=== PATIENT | female | born 1965 | race Caucasian/White ===

== ENCOUNTER 2017-02-16 21:38 | Emergency (ER) | payer OTHER, BC ==
[2017-02-16] MEDS ORDERED: HYDROcodone/ACETAMINOPHEN 1 EACH TABLET PO ONE (22:25)
--- NOTE | 2017-02-16 22:26 | ERNOTE ---
Upper Extremity HPI - Narrative Date of Service: 02/16/17 - General Extremities Pain Location: wrist: right Time Seen by Provider: 02/16/17 21:43 Source: patient - Immun/Allergies/Home Medications Immunizations: IMMUNIZATION HX Immunizations Up to Date Yes History of Influenza Vaccine No Hx Pneumococcal Vaccination No Allergies/Adverse Reactions: Allergies Allergy/AdvReac Type Severity Reaction Status Date / Time fluoxetine HCl [From Prozac] Allergy Verified 08/14/15 13:14 antihistamines AdvReac Mild "feel like Uncoded 03/30/15 20:58 heart skips a beat" Home Medications: HOME MEDICATIONS Calcium Carb/Vitamin D3/Vit K1 [Calcium + D Soft Chewable Tab] 1 each PO DAILY 03/30/15 [Last Taken Unknown] Levothyroxine Sodium [Unithroid] 100 mcg PO DAILY 03/30/15 [Last Taken Unknown] Lorazepam [Ativan] 2 mg PO PRN 03/30/15 [Last Taken Unknown] Metoprolol Tartrate [Lopressor] 25 mg PO BID 03/30/15 [Last Taken Unknown] Venlafaxine HCl [Venlafaxine HCl ER] 150 mg PO DAILY 03/30/15 [Last Taken Unknown] lamoTRIgine [Lamictal] 150 mg PO DAILY 03/30/15 [Last Taken Unknown] Omeprazole [Prilosec] 40 mg PO BID 08/14/15 [Last Taken Unknown] HYDROcodone/ACETAMINOPHEN [Hulett 5-325] 1 tab PO Q4H PRN #40 tab 02/16/17 [Last Taken Unknown] - History of Present Illness Narrative: This is a 51-year-old [id number] female who presents to the emergency department complaining of right wrist pain. The patient states this morning around 9 AM she was at work and was wheeling a very heavy load on a cart. She says that the momentum of the cart was in excess of what she could stop so she put her arm out between the handle and the wall. She received compression from the handle onto her wrist as her arm was straight between the wall and the handle. This was an axial loading kind of injury. She says that they saw her and felt that she had hyperextended it. She says that she heard a crunch. She has had no numbness or tingling. She has had no color change. She says it is continued to hurt throughout the day. She actually went back to work. The patient has no other injuries or complaints Review of Systems - Review of Systems Constitutional: Present: no symptoms reported EYE: Present: no symptoms reported ENT: Present: no symptoms reported Respiratory: Present: no symptoms reported Cardiology: Present: no symptoms reported Gastrointestinal/Abdominal: Present: no symptoms reported Genitourinary: Present: no symptoms reported Musculoskeletal: Present: See HPI, joint pain Skin: Present: no symptoms reported Neurological: Present: no symptoms reported Endocrine: Present: no symptoms reported Hematologic/Lymphatic: Present: no symptoms reported All Other Systems: All systems neg except as marked - Patient's Past Medical History Patient History - Medical: Anxiety, Depression, GERD, Hypothyroidism Patient History - Cardiac/Respiratory: Hypertension Patient History - Cancer: No Hx of Cancer Patient History - Surgical Procedures: Appendectomy, Hysterectomy, T & A Patient History - Other: None - Social History Living Situations: home Abuse History: No History of abuse Psych History: Hx of Anxiety, Hx of Depression Smoking Status: Never smoker Have you smoked in the past 12 months: No Do you dip or chew tobacco: No Alcohol Use: none Drug Use: none - Immunizations Immunizations Up to Date: Yes Hx Pneumococcal Vaccination: No History of Influenza Vaccine: No Physical Exam - Physical Exam General Appearance: Present: wd/wn, alert, no apparent distress Head Exam: Present: normal inspection, no evidence of injury Eye Exam: Normal inspection: bilateral, PERRL: bilateral, EOMI: bilateral Ears, Nose, Throat: Present: normal ENT inspection, normal pharynx Neck: Present: normal inspection, nontender Respiratory: Present: no respiratory distress, normal breath sounds, no accessory muscle use, chest nontender, lungs clear Cardiovascular/Chest: Present: regular rate, rhythm, no murmur, normal peripheral pulses Gastrointestinal/Abdominal: Present: normal bowel sounds, nontender, nondistended, soft, no organomegaly Extremity Exam: Present: other - the patient has significant tenderness to the distal radius. Limited range of motion due to pain at the wrist. Normal range of motion in all fingers. Good capillary refill. No pain proximal in the forearm. Full range of motion of elbow. Neurological Exam: Present: alert, oriented, normal mood/affect, no motor/ sensory deficits ED Progress - Vital Signs Patient's Vital Signs:: I have reviewed the patient's vital signs. Vital Signs: Vital Signs 02/16/17 21:52 Temperature 36.6 C Pulse Rate 65 Respiratory 14 Rate Blood Pressure 124/78 O2 Sat by Pulse 95 Oximetry - X-Ray X-Ray #1 X-Ray: wrist Interpretation: Interp. by me - patient has an impacted fracture of the right radius. There is also ulnar styloid fracture. Undetermined age. - Progress/Reassessment Chief Complaint: Upper Extremity Injury/Problem Plan - Plan Plan: Patient is going to be treated with a splint. I will give her pain medicine. She is to be off of work until she is seen by orthopedics. She is given the number for orthopedics. His given a prescription for pain medicine as well Departure Clinical Impression: Wrist fracture - Departure Condition: Stable Instructions: Wrist Fracture Treated With Immobilization, [id number] Additional Instructions: Absolutely no work until you are seen by orthopedics for follow-up. Take the pain medicine as prescribed. Do not take pain medicine if you driving or operating machinery. Be aware that this medicine may make you sleepy. Return to the emergency department for any new or concerning symptoms. Referrals: Miko Pace DO [Primary Care Provider] - Prescriptions: HYDROcodone/ACETAMINOPHEN [Hulett 5-325] 1 tab PO Q4H PRN #40 tab PRN Reason: Pain
[2017-02-16] MEDS ORDERED: HYDROcodone/ACETAMINOPHEN 1 EACH TABLET ONE (22:44)
[2017-02-16 23:03] VITALS: BP 122/70
== END 2017-02-16 23:00 | disposition home or self-care (01) ==
LOC: ER 21:38
PROC: 2W3CX1Z Immobilization of Right Lower Arm using Splint (ICD-10-PCS; principal; 2017-02-16)
DX: S62.101A Fracture of unspecified carpal bone, right wrist, initial encounter for closed fracture (principal); X50.0XXA Overexertion from strenuous movement or load, initial encounter; Y93.89 Activity, other specified; Y92.63 Factory as the place of occurrence of the external cause; Y99.0 Civilian activity done for income or pay; F41.9 Anxiety disorder, unspecified; F32.9 Major depressive disorder, single episode, unspecified

== ENCOUNTER 2017-06-26 13:05 | Emergency (ER) | payer BC ==
[2017-06-26 13:32] LABS: Hematocrit 34.9 % (37.0-47.0); Hemoglobin 10.7 gm/dL (12.5-16.0); Mean Cell Volume 79.9 fl (78-100); Mean Corpuscular Hemoglobin 24.5 pg (27-31); Mean Corpuscular Hgb Conc 30.7 g/dl (32-36); Mean Platelet Volume 10.7 fl (6.0-9.5); Neutrophil # 4.5 K/mm3 (1.3-6.0); Neutrophil % 61.6 % (42-75.0); Platelet Count 308 K/mm3 (150-450); Red Blood Count 4.37 M/mm3 (4.2-5.4); Red Cell Distribution Width 15.4 % (11.5-14.0); White Blood Count 7.4 K/mm3 (4.0-10.5)
[2017-06-26] MEDS ORDERED: ASPIRIN 81 MG TAB.CHEW PO ONE (13:34)
[2017-06-26] MEDS ORDERED: ASPIRIN 81 MG TAB.CHEW ONE (13:34)
[2017-06-26 13:44] LABS: Prothrombin Time (Patient) 9.6 Seconds (9.0-11.0)
--- NOTE | 2017-06-26 13:46 | ERNOTE ---
Chest Pain/Cardiac HPI Chief Complaint: Chest Pain Time Seen by Provider: 06/26/17 13:22 Source: patient Exam Limitations: no limitations Immunizations: IMMUNIZATION HX Immunizations Up to Date Yes History of Influenza Vaccine No Hx Pneumococcal Vaccination No Allergies/Adverse Reactions: Allergies fluoxetine HCl [From Prozac] Allergy (Verified 06/26/17 13:13) antihistamines Adverse Reaction (Mild, Uncoded 06/26/17 13:13) "feel like heart skips a beat" Home Medications: HOME MEDICATIONS Calcium Carb/Vitamin D3/Vit K1 [Calcium + D Soft Chewable Tab] 1 each PO DAILY 03/30/15 [Last Taken Unknown] Levothyroxine Sodium [Unithroid] 100 mcg PO DAILY 03/30/15 [Last Taken Unknown] Lorazepam [Ativan] 2 mg PO PRN 03/30/15 [Last Taken Unknown] Metoprolol Tartrate [Lopressor] 25 mg PO BID 03/30/15 [Last Taken Unknown] Venlafaxine HCl [Venlafaxine HCl ER] 150 mg PO DAILY 03/30/15 [Last Taken Unknown] lamoTRIgine [Lamictal] 150 mg PO DAILY 03/30/15 [Last Taken Unknown] Omeprazole [Prilosec] 40 mg PO BID 08/14/15 [Last Taken Unknown] Venlafaxine HCl 75 mg PO DAILY 02/16/17 [Last Taken Unknown] Doxycycline Hyclate [Vibratab] 100 mg PO BID 06/26/17 [Last Taken Unknown] Narrative: Patient has had pressure in her chest on and off for about a week. About 90 minutes prior to coming here she had another episode of chest pressure radiating to her neck and left arm, she also feels short of breath. She was on her way back from her orthopedic doctor after being released back to work. She was injured at work and there is a lawsuit involved as she didn't get payed while she was off. She is afraid of going back and being pushed into quitting, so her stress level is very high. Timing: intermittent Severity/Quality: mild Location: central Chest Pain Radiation: neck, shoulders Activities at Onset: emotional stress Modifying Factors - Improves: Present: nothing Modifying Factors - Worsens: Present: nothing Nitro Today/Relief: no nitro taken today Aspirin Treatment Today: no aspirin today Associated Symptoms: Present: shortness of breath, heartburn. Absent: dizziness , cough, diaphoresis, fever/chills, palpitations, nausea, vomiting, abdominal pain Prior Chest Pain/Cardiac Workup: Denies: prior chest pain, no prior cardiac workup Prior Treatment: Denies: currently on antibiotics Review of Systems - Review of Systems Constitutional: Absent: recent illness, fever EYE: Absent: vision changes ENT: Absent: sore throat Respiratory: Present: See HPI, shortness of breath Cardiology: Present: See HPI, chest pain Gastrointestinal/Abdominal: Absent: nausea, vomiting, abdominal pain Genitourinary: Present: no symptoms reported Musculoskeletal: Absent: back pain, neck pain Neurological: Absent: headache - Patient's Past Medical History Patient History - Medical: Anxiety, Depression, GERD, Hypothyroidism Patient History - Cardiac/Respiratory: Hypertension Patient History - Cancer: No Hx of Cancer Patient History - Surgical Procedures: Appendectomy, Hysterectomy, T & A Patient History - Other: None - Social History Abuse History: No History of abuse Psych History: Hx of Anxiety, Hx of Depression Smoking Status: Never smoker Have you smoked in the past 12 months: No Alcohol Use: none Drug Use: none - Immunizations Immunizations Up to Date: Yes Hx Pneumococcal Vaccination: No History of Influenza Vaccine: No Physical Exam - Physical Exam General Appearance: Present: wd/wn, alert, no apparent distress, anxious, obese Ears, Nose, Throat: Present: normal ENT inspection, normal pharynx Respiratory: Present: no respiratory distress, normal breath sounds, no accessory muscle use, chest nontender, lungs clear Cardiovascular/Chest: Present: regular rate, rhythm, no murmur Gastrointestinal/Abdominal: Present: normal bowel sounds, nontender, nondistended, soft Extremity Exam: Present: no edema Neurological Exam: Present: alert, oriented, normal mood/affect Skin Exam: Present: normal color, warm/dry ED Progress - Results and Orders Patient's Lab Results:: I have reviewed the patient's lab results. - Vital Signs Patient's Vital Signs:: I have reviewed the patient's vital signs. Vital Signs: Vital Signs 06/26/17 13:07 Temperature 36.7 C Pulse Rate 64 Respiratory 14 Rate Blood Pressure 124/69 O2 Sat by Pulse 99 Oximetry - EKG EKG: NSR, no ST T wave changes, other - no acute changes EKG read: Interp. by hi - X-Ray X-Ray #1 X-Ray: chest - hiatal hernia, no acute Interpretation: Reviewed by me - Progress/Reassessment Chief Complaint: Chest Pain Progress Note-Subjective: 06/26/17 14:29 discussed test results and limits of test to rule our CAD differential diagnosis anxiety vs CAD offered admission, patient would like to go home and take her lorazepam Departure Clinical Impression: Anxiety Chest pain Qualifiers: Chest pain type: unspecified Qualified Code(s): R07.9 - Chest pain, unspecified - Departure Disposition: Home self-care Condition: Good Instructions: Chest Pain Observation Additional Instructions: the chest pain is most likely related to your anxiety but heart disease is not completely excluded call your doctor for follow up and take your lorazepam as prescribed Referrals: Miko Pace DO [Staff Physician] -
[2017-06-26 13:47] LABS: INR 0.96 INR (0.90-1.10); Partial Thrombolplastin Time 25.3 Seconds (24-32)
[2017-06-26 14:05] LABS: ALT 32 U/L (19-67); AST 18 U/L (0-48); Albumin * 3.6 gm/dl (3.4-5.0); Alkaline Phosphatase * 97 U/L (50-170); Anion Gap 11.6 mmol/L (6.8-13.8); BUN/Creatinine Ratio 17.3 (9.0-21.6); Bilirubin, Total 0.2 mg/dL (0.0-1.1); Blood Urea Nitrogen 17 mg/dL (3-23); Ca. Corrected For Albumin 8.6 mg/dL (8.4-10.2); Calcium * 8.6 mg/dL (7.9-10.9); Carbon Dioxide 30.2 mmol/L (24-32.6); Chloride 104 mmol/L (97-106); Glucose * 106 mg/dL (70-110); Potassium 3.8 mmol/L (3.4-4.6); Sodium 142 mmol/L (132-142); Total Protein 7.3 gm/dL (6.2-8.2); Troponin I Less than 0.017 ng/ml (0.00-0.10)
[2017-06-26 14:17] VITALS: BP 107/61
== END 2017-06-26 14:39 | disposition home or self-care (01) ==
LOC: ER 13:05
DX: R07.9 Chest pain, unspecified; F41.9 Anxiety disorder, unspecified
CPT/HCPCS: 36415; 71020; 71046; 80053; 84484; 85025; 85610; 85730; 93005; 99284

== ENCOUNTER 2018-02-22 05:03 | Observation (INO) ==
[2018-02-22] MEDS ORDERED: ONDANSETRON HCL/PF 2 MG/ML VIAL IV ONE (05:09)
[2018-02-22] MEDS ORDERED: MORPHINE SULFATE 2 MG/ML DISP.SYRIN IV ONE ×3 (05:09→05:56)
[2018-02-22] MEDS ORDERED: ONDANSETRON HCL/PF 2 MG/ML VIAL ONE (05:09)
[2018-02-22] MEDS ORDERED: MORPHINE SULFATE 2 MG/ML DISP.SYRIN ONE ×2 (05:09→05:39)
--- NOTE | 2018-02-22 05:14 | ERNOTE ---
Trauma/Assault HPI - General Stated Complaint: broken arm Time Seen by Provider: 02/22/18 05:05 Source: patient Exam Limitations: no limitations - Immun/Allergies/Home Medications Immunizations: IMMUNIZATION HX Immunizations Up to Date Yes History of Influenza Vaccine No Hx Pneumococcal Vaccination No Allergies/Adverse Reactions: Allergies desvenlafaxine [From Pristiq] Allergy (Verified 02/22/18 05:09) Hair Loss diphenhydramine [From Benadryl] Allergy (Verified 02/22/18 05:09) Tachycardia fluoxetine HCl [From Prozac] Allergy (Verified 02/22/18 05:09) Hives nortriptyline Allergy (Verified 02/22/18 05:09) Panic Attacks antihistamines Adverse Reaction (Mild, Uncoded 02/22/18 05:09) "feel like heart skips a beat" Home Medications: HOME MEDICATIONS Levothyroxine Sodium [Unithroid] 100 mcg PO DAILY 03/30/15 [Last Taken Unknown] Metoprolol Tartrate [Lopressor] 25 mg PO BID 03/30/15 [Last Taken Unknown] Omeprazole [Prilosec] 40 mg PO BID 08/14/15 [Last Taken Unknown] cholecalciferol (vitamin D3) 10,000 unit capsule 10,000 unit PO QWEEK cap 02/15 [Last Taken Unknown] buspirone 10 mg tablet 10 mg PO BID #30 tab 02/19/18 [Last Taken Unknown] lamotrigine 150 mg tablet 150 mg PO DAILY #30 tab 02/19/18 [Last Taken Unknown] lorazepam 2 mg tablet 2 mg PO BID PRN #60 tab 02/19/18 [Last Taken Unknown] sertraline 100 mg tablet 200 mg PO DAILY #60 tab 02/19/18 [Last Taken Unknown] - History of Present Illness Narrative: Pt was going down the stairs and tripped falling on her right wrist. Location Occurred: Reports: home Pain Location: Reports: upper extremity Method of Injury: Reports: fall Severity: moderate Modifying Factors - (Improves): Reports: immobilization Modifying Factors - (Worsens): Reports: movement Loss of Consciousness: Reports: no loss of consciousness Review of Systems - Review of Systems Constitutional: Absent: recent illness, fever, chills EYE: Absent: vision changes ENT: Absent: nose congestion, nasal drainage Respiratory: Absent: shortness of breath Cardiology: Absent: chest pain Gastrointestinal/Abdominal: Absent: nausea, vomiting, constipation, abdominal pain Musculoskeletal: Absent: back pain, neck pain Skin: Absent: rash, change in color Neurological: Absent: dizziness/light-headedness Endocrine: Absent: excessive sweating, flushing Hematologic/Lymphatic: Absent: easy bruising, easy bleeding Psych: Present: anxiety, depressed Medical History (Last Reviewed 02/22/18 @ 06:04 by Eleuterio Reinoso DO) OCD (obsessive compulsive disorder) (Chronic) Major depression (Chronic) Hx of fracture of wrist Anxiety disorder Borderline personality disorder Depression Gastroesophageal reflux Hernia, hiatal Hypothyroid Insomnia Mixed obsessional thoughts and acts Obsessive compulsive disorder Panic disorder without agoraphobia Sinusitis Surgical History: Surgical History (Last Reviewed 02/22/18 @ 06:04 by Eleuterio Reinoso DO) hx of wrist surgery Benign tumor of thyroid gland History of appendectomy History of breast biopsy History of partial hysterectomy History of tonsillectomy Family History: Family History (Last Reviewed 02/22/18 @ 05:12 by Candi Avalos RN) Aunt FH: mental illness Social History: Preferred Language Cameroonian Abuse History No History of abuse Psych History Hx of Anxiety,Hx of Depression Physical Exam - Physical Exam General Appearance: Present: wd/wn, alert, mild distress Head Exam: Present: normal inspection, no evidence of injury Ears, Nose, Throat: Present: normal ENT inspection Neck: Present: normal inspection, nontender, supple Respiratory: Present: no respiratory distress, normal breath sounds, no accessory muscle use Cardiovascular/Chest: Present: regular rate, rhythm Peripheral Pulses: N=norm/S=strong/W=weak/B=bound/A=absent: Radial (R): Normal Gastrointestinal/Abdominal: Present: nondistended, soft Back Exam: Present: normal inspection, normal range of motion Extremity Exam: Present: bony tenderness - right distal forearm with mild deformity Neurological Exam: Present: alert, oriented, normal mood/affect, no motor/ sensory deficits Skin Exam: Present: warm/dry, other - 1 cm laceration lateral right distal forearm associated with fracture/ deformity. - C-Spine cleared by: Neg history & exam - T, L-Spine cleared by: Neg hx and exam ED Progress - X-Ray X-Ray #1 X-Ray: forearm Interpretation: Interp. by me X-ray Comments: right distal radius and ulna fractures displaced. radius fracture at the proximal end of the previous plate. - Progress/Reassessment Progress:: Improved Progress Note-Subjective: 02/22/18 05:[address] Gunn and he requested obs admission and he will take her to surgery today. Departure Clinical Impression: Radius and ulna distal fracture Qualifiers: Encounter type: initial encounter Fracture type: open Laterality: right - Departure Disposition: Still a patient Condition: Good Critical Care Time - Critical Care Critical Time Spent:: No
[2018-02-22] MEDS ORDERED: ceFAZolin SODIUM 1 GM in DEXTROSE 5 % IN WATER 100 ML IV ONE ×2 (05:54)
[2018-02-22] MEDS ORDERED: MORPHINE SULFATE 4 MG/ML SYRG ONE (05:56)
[2018-02-22] MEDS ORDERED: ceFAZolin SODIUM 1 GM VIAL IV PRN (06:00)
[2018-02-22] MEDS ORDERED: ceFAZolin SODIUM/DEXTROSE,ISO 2 GM/50 ML BAG IV ONE (07:36)
--- NOTE | 2018-02-22 07:36 | HP ---
Chief Complaint - Chief Complaint Date of Service: 02/22/18 Time of Service: 07:32 Chief Complaint: Grade 1 open Right periprosthetic radius and ulna fracture History of Present Illness: Mrs. Brown is a 52-year-old female who a year ago underwent open reduction internal fixation of her right distal radius at the [place]. She subsequently fell tonight resulting in a periprosthetic right radius fracture and a grade 1 open right ulna fracture just proximal to the plate. She denies any other injuries. She reports that she healed well from the previous fracture. She denies any numbness or tingling. Medical History (Last Reviewed 02/22/18 @ 06:40 by Garry Jha RN) OCD (obsessive compulsive disorder) (Chronic) Major depression (Chronic) Hx of fracture of wrist Anxiety disorder Borderline personality disorder Depression Gastroesophageal reflux Hernia, hiatal Hypothyroid Insomnia Mixed obsessional thoughts and acts Obsessive compulsive disorder Panic disorder without agoraphobia Sinusitis Surgical History: Surgical History (Last Reviewed 02/22/18 @ 06:40 by Garry Jha RN) hx of wrist surgery Benign tumor of thyroid gland History of appendectomy History of breast biopsy History of partial hysterectomy History of tonsillectomy Family History: Family History (Last Reviewed 02/22/18 @ 06:40 by Garry Jha RN) Aunt FH: mental illness Social History: Patient Lives/Resources Mother/Bro Utilized Occupation [employer] in [employer] Preferred Language Peruvian Do you have any sikhism or Yes: Protastant cultural preference? Smoking Status Never smoker Have you smoked in the past 12 No months Do you dip or chew tobacco No Abuse History No History of abuse Psych History Hx of Anxiety,Hx of Depression Alcohol Use none Drug Use none Review Of Systems (GEN) - Review of Systems Generalized/Overall Review: Present: No Symptoms Reported Immunizations: IMMUNIZATION HX Immunizations Up to Date Yes History of Influenza Vaccine No Hx Pneumococcal Vaccination No Allergies/Adverse Reactions: Allergies Allergy/AdvReac Type Severity Reaction Status Date / Time desvenlafaxine [From Pristiq] Allergy Hair Loss Verified 02/22/18 06:40 diphenhydramine Allergy Tachycardia Verified 02/22/18 06:40 [From Benadryl] fluoxetine HCl [From Prozac] Allergy Hives Verified 02/22/18 06:40 nortriptyline Allergy Panic Verified 02/22/18 06:40 Attacks antihistamines AdvReac Mild "feel like Uncoded 02/22/18 06:40 heart skips a beat" Home Medications: HOME MEDICATIONS Levothyroxine Sodium [Unithroid] 100 mcg PO DAILY 03/30/15 [Last Taken Unknown] Metoprolol Tartrate [Lopressor] 25 mg PO BID 03/30/15 [Last Taken Unknown] Omeprazole [Prilosec] 40 mg PO BID 08/14/15 [Last Taken Unknown] cholecalciferol (vitamin D3) 10,000 unit capsule 10,000 unit PO QWEEK cap 02/15 [Last Taken Unknown] buspirone 10 mg tablet 10 mg PO BID #30 tab 02/19/18 [Last Taken Unknown] lamotrigine 150 mg tablet 150 mg PO DAILY #30 tab 02/19/18 [Last Taken Unknown] lorazepam 2 mg tablet 2 mg PO BID PRN #60 tab 02/19/18 [Last Taken Unknown] sertraline 100 mg tablet 200 mg PO DAILY #60 tab 02/19/18 [Last Taken Unknown] Exam - Exam Vital Signs: Vital Signs - Last Taken Temp 36 C 02/22/18 06:57 Pulse 52 L 02/22/18 06:57 Resp 16 02/22/18 06:57 BP 139/75 02/22/18 06:57 Pulse Ox 98 02/22/18 06:57 Comprehensive Narrative: 02/22/18 07:33 Right upper extremity: Palpable radial pulse, brisk cap refill, sensation is intact light touch, able to move flex and extend fingers and thumb. She has gross deformity of her arm. When doing the splint showed a small area of bleeding over the ulnar aspect of the forearm. This is less than 2 cm. Constitutional: Present: Alert, Oriented x3 Respiratory: Present: normal breath sounds Cardiovascular/Chest: Present: regular rate, rhythm Diagnostic Studies: 2 views right forearm reviewed: Previous to place distal radius plate volar without any signs of implant failure, just proximal to the radial plate is a transverse displaced radius fracture. There is a transverse distal diaphyseal ulnar fracture as well. No signs of hand or elbow injury Assessment/Plan - Narrative Narrative: The plan is for open reduction internal fixation with removal of deep implants as well as irrigation and debridement of wounds to her right forearm. The risks , benefits, and alternatives treatment were discussed in the room. She will receive preoperative Ancef as well as postoperative Ancef due to the grade 1 open nature of her fracture. She will remain nothing by mouth. The extremity was marked this time. - Assessment/Plan (1) Anxiety Problem: Chronic (2) Radius and ulna distal fracture Problem: Acute Qualifiers: Encounter type: initial encounter Fracture type: open Open fracture type : open type I or II Laterality: right Qualified Code(s): S52.501B - Unspecified fracture of the lower end of right radius, initial encounter for open fracture type I or II; S52.601B - Unspecified fracture of lower end of right ulna, initial encounter for open fracture type I or II (3) OCD (obsessive compulsive disorder) Problem: Chronic Qualifiers: (4) Major depression Problem: Chronic Qualifiers:
--- NOTE | 2018-02-22 09:24 | ANES ---
Anesthesia Pre Procedure Eval Vitals/Labs: Last Vital Signs Temp 36 C 02/22/18 06:57 Pulse 52 L 02/22/18 06:57 Resp 16 02/22/18 06:57 BP 139/75 02/22/18 06:57 Pulse Ox 98 02/22/18 06:57 HOME MEDICATIONS Levothyroxine Sodium [Unithroid] 100 mcg PO DAILY 03/30/15 [Last Taken Unknown] Metoprolol Tartrate [Lopressor] 25 mg PO BID 03/30/15 [Last Taken Unknown] Omeprazole [Prilosec] 40 mg PO BID 08/14/15 [Last Taken Unknown] cholecalciferol (vitamin D3) 10,000 unit capsule 10,000 unit PO QWEEK cap 02/15 [Last Taken Unknown] buspirone 10 mg tablet 10 mg PO BID #30 tab 02/19/18 [Last Taken Unknown] lamotrigine 150 mg tablet 150 mg PO DAILY #30 tab 02/19/18 [Last Taken Unknown] lorazepam 2 mg tablet 2 mg PO BID PRN #60 tab 02/19/18 [Last Taken Unknown] sertraline 100 mg tablet 200 mg PO DAILY #60 tab 02/19/18 [Last Taken Unknown] Allergies/Adverse Reactions: Allergies Allergy/AdvReac Type Severity Reaction Status Date / Time desvenlafaxine [From Pristiq] Allergy Hair Loss Verified 02/22/18 06:40 diphenhydramine Allergy Tachycardia Verified 02/22/18 06:40 [From Benadryl] fluoxetine HCl [From Prozac] Allergy Hives Verified 02/22/18 06:40 nortriptyline Allergy Panic Verified 02/22/18 06:40 Attacks antihistamines AdvReac Mild "feel like Uncoded 02/22/18 06:40 heart skips a beat" - Planned Procedure Planned Procedure: RADIUS AND ULNA FRACTURES Medication List Reviewed:: Yes Allergies Verified: Yes Medical History (Last Reviewed 02/22/18 @ 09:17 by Chacorta Zhou CRNA) OCD (obsessive compulsive disorder) (Chronic) Major depression (Chronic) Hx of fracture of wrist Anxiety disorder Borderline personality disorder Depression Gastroesophageal reflux Hernia, hiatal Hypothyroid Insomnia Mixed obsessional thoughts and acts Obsessive compulsive disorder Panic disorder without agoraphobia Sinusitis Surgical History (Last Reviewed 02/22/18 @ 09:17 by Chacorta Zhou CRNA) hx of wrist surgery Benign tumor of thyroid gland History of appendectomy History of breast biopsy History of partial hysterectomy History of tonsillectomy Family History (Last Reviewed 02/22/18 @ 09:17 by Chacorta Zhou CRNA) Aunt FH: mental illness - Family Anesthesia History Family History:: no untoward family reactions to anesthesia, no familial bleeding tendencies, no family history of clotting disorders - residual muscle relaxant after one anesthetic, no family history of premature - Airway/Neck/Teeth Within Normal Limits:: Yes Teeth Condition: Intact Mallampatti Score: 2 Thyromental (T-M) distance: > 6 cm Mandibulo Hyoid distance: > 3 cm - Respiratory Respiratory: chest non-tender, lungs clear, normal breath sounds Smoking Status: Never smoker Sleep Apnea currently treated: No Sleep Apnea by current assessment: Yes Discussed Risks/Treatment of JAMES: Yes - some symptoms - Cardiovascular Patient History - Cardiac/Respiratory: Hypertension Tolerates Activity: Fair Heart Sounds: S1 & S2, Regular, Murmur - Anesthesia Assessment and Plan ASA Class: PS, III Anesthesia Type Plan: General LMA, Block - Axillary block for post op pain relief Planned difficult intubation/equipment available: No
[2018-02-22] MEDS: RINGER'S SOLUTION,LACTATED 1,000 ML IV PRN ×2 (12:25→14:25)
[2018-02-22] MEDS ORDERED: RINGER'S SOLUTION,LACTATED 1,000 ML IV PRN (15:30)
[2018-02-22] MEDS ORDERED: ACETAMINOPHEN 500 MG TABLET PO PRN (15:30)
[2018-02-22] MEDS ORDERED: MAGNESIUM HYDROXIDE 30 ML UDC PO PRN (15:30)
[2018-02-22] MEDS ORDERED: ZOLPIDEM TARTRATE 5 MG TABLET PO PRN (15:30)
[2018-02-22] MEDS ORDERED: HYDROmorphone HCL 2 MG/ML VIAL IV PRN ×2 (15:30→15:57)
[2018-02-22] MEDS ORDERED: MAG HYDROX/ALUMINUM HYD/SIMETH 30 ML UDC PO PRN (15:30)
--- NOTE | 2018-02-22 15:30 | POSTOP NO ---
Date of Surgery: 02/22/18 Patient Tolerated the Procedure: Well Post Operative Diagnosis/Procedures: Networker: Dean Dyson PA-C Post-operative Diagnosis: Grade 1 open right distal ulna and periprosthetic right radius fracture Finding: Above Procedure: Open reduction internal fixation of right distal radius and ulna, removal of deep implants, irrigation and debridement of wounds, intraoperative interpretation of x-rays Estimated Blood Loss: Minimal Specimens: Implants for disposal
--- NOTE | 2018-02-22 15:53 | ANES ---
Anesthesia Procedure Note Procedure Note: ANESTHESIA PROCEDURE NOTE Date of Procedure: 02/22/2018 Time of procedure: 1220. Performed by: VIRGINIA Carrion CRNA, MSN Crating And Moving Estimator: Isela Morales.. Preprocedure diagnosis: Post right wrist surgery pain relief. Post procedure diagnosis: Same. Procedure: Right Axillary nerve block. Indications: Post right post wrist surgery pain relief. Findings: See below. Details of the procedure: The patient was brought to OR #4 and placed in the supine position. After adequate sedation, the patient was prepped with chlorhexidine and using ultrasound guidance the right axillary artery, radial, ulnar and medial segments of the brachial plexus were identified and lidocaine 1 % was infiltrated to the skin of the intended injection site. Under ultrasound guidance the individual nerve bundles were approached with visualization of a 2inch stimulator needle, until an arm response was identified on nerve stimulator. Once the stimulator response was effective at less than 0.5 mV and greater than 0.3 mV the axillaryl nerves were surrounded with 40 mL bupivacaine 0.5% with 1-200,000 epinephrine. An axillary ring was also injected with the same solution. Please see radiology/ultrasound report for details and retained images of the procedure. EBL: 0 Fluids: N/A. Specimen: N/A. Post procedure condition: The patient tolerated the procedure well. No complications were noted. Thank you for this consultation. Chacorta Zhou CRNA, ARNP, MSN
--- NOTE | 2018-02-22 15:53 | ANES ---
Post Anesthesia Discharge - Transfer of Care Transfer of Care handoff given to nurse: Yes - Discharge from PACU Discharge from PACU when meets criteria: Yes
--- NOTE | 2018-02-22 16:49 | ANES ---
Post Anesthesia Assessment - Vital Signs Vitals: Last Vital Signs Temp 36.7 C 02/22/18 16:30 Pulse 65 02/22/18 16:30 Resp 16 02/22/18 16:30 BP 132/78 02/22/18 16:30 Pulse Ox 95 02/22/18 16:30 Airway Patency: Normal - Mental Status Level Of Consciousness: Awake, Alert, Appropriate - Pain Level Pain Score: 5 - N/V Assessment Nausea/Vomiting Presence: None Dehydration:: No
[2018-02-22] MEDS: ceFAZolin SODIUM 1 GM in DEXTROSE 5 % IN WATER 100 ML IV SCH ×4 (17:30→23:48)
[2018-02-22] MEDS ORDERED: LORazepam 1 MG TABLET PO PRN (19:49)
[2018-02-22] MEDS: busPIRone HCL 5 MG TABLET PO SCH (20:16)
[2018-02-22] MEDS ORDERED: SENNOSIDES/DOCUSATE SODIUM 1 TAB TABLET PO SCH (21:00)
[2018-02-22] MEDS: PANTOPRAZOLE SODIUM 40 MG TABLET.EC PO SCH (21:46)
[2018-02-22] MEDS: METOPROLOL TARTRATE 25 MG TABLET PO SCH (21:46)
[2018-02-23] MEDS: oxyCODONE HCL/ACETAMINOPHEN 1 TAB TABLET PO PRN ×2 (03:34→09:57)
[2018-02-23] MEDS: ceFAZolin SODIUM 1 GM in DEXTROSE 5 % IN WATER 100 ML IV SCH ×4 (05:44→12:04)
[2018-02-23] MEDS: PANTOPRAZOLE SODIUM 40 MG TABLET.EC PO SCH (06:43)
[2018-02-23] MEDS ORDERED: LEVOTHYROXINE SODIUM 100 MCG TABLET PO SCH (07:00)
--- NOTE | 2018-02-23 08:29 | DS ---
(1) Anxiety Problem: Chronic (2) Radius and ulna distal fracture Problem: Acute Qualifiers: Encounter type: initial encounter Fracture type: open Open fracture type : open type I or II Laterality: right Qualified Code(s): S52.501B - Unspecified fracture of the lower end of right radius, initial encounter for open fracture type I or II; S52.601B - Unspecified fracture of lower end of right ulna, initial encounter for open fracture type I or II (3) OCD (obsessive compulsive disorder) Problem: Chronic Qualifiers: (4) Major depression Problem: Chronic Qualifiers: Description of Stay: Mrs. Brown was brought into the hospital for observation. Post fracture care she has a grade 1 open fracture requiring 24 hours of IV antibiotics. She did well. She had no concerns. Her pain is well-controlled. Her arm is neurovascularly intact. She is felt to be stable for discharge to home. She is to keep her splint intact. Ice and elevate the arm. She'll follow up in approximately 10-14 days. No lifting with the arm. Use a sling for comfort. Procedures Performed: see notes below List Procedures: Open reduction total fixation of right radius and ulna with removal of deep implants Discharge Location: Home Disposition: Home self-care Condition: Good Discharge Activity: Non-Weight bearing Discharge Diet: General/regular food Referrals: Miko Pace DO [Primary Care Provider] - Prescriptions (Any new or edited meds): oxyCODONE HCL/ACETAMINOPHEN [Percocet 5 MG/325 MG] 2 tab PO Q4H PRN #40 tablet PRN Reason: Moderate Pain (Pain Scale 4-6) Complete Home Medications List: Complete Home Medication List: Levothyroxine Sodium [Unithroid] 100 mcg PO DAILY 03/30/15 Metoprolol Tartrate [Lopressor] 25 mg PO BID 03/30/15 Omeprazole [Prilosec] 40 mg PO BID 08/14/15 buspirone 10 mg tablet 10 mg PO BID #30 tab 02/19/18 lamotrigine 150 mg tablet 150 mg PO DAILY #30 tab 02/19/18 lorazepam 2 mg tablet 2 mg PO BID PRN #60 tab 02/19/18 sertraline 100 mg tablet 200 mg PO DAILY #60 tab 02/19/18 Sennosides/Docusate Sodium [Senokot-S] 2 tab PO HS tablet 02/23/18 oxyCODONE HCL/ACETAMINOPHEN [Percocet 5 MG/325 MG] 2 tab PO Q4H PRN #40 tablet 02/23/18
[2018-02-23] MEDS ORDERED: SERTRALINE HCL 100 MG TABLET PO SCH (09:00)
[2018-02-23] MEDS ORDERED: lamoTRIgine 100 MG TABLET PO SCH (09:00)
[2018-02-23] MEDS: busPIRone HCL 5 MG TABLET PO SCH (09:53)
[2018-02-23] MEDS: METOPROLOL TARTRATE 25 MG TABLET PO SCH (09:53)
[2018-02-23 12:59] VITALS: BP 101/60
== END 2018-02-23 13:45 | disposition home or self-care (01) ==
LOC: ER 05:03 → MS 05:03
PROVIDERS: ADMIT Orthopaedic Surgery; ATTEND Orthopaedic Surgery
DX: S52.601B Unspecified fracture of lower end of right ulna, initial encounter for open fracture type I or II; E03.9 Hypothyroidism, unspecified; W01.0XXA Fall on same level from slipping, tripping and stumbling without subsequent striking against object, initial encounter; F41.9 Anxiety disorder, unspecified; F42.9 Obsessive-compulsive disorder, unspecified; S52.501B Unspecified fracture of the lower end of right radius, initial encounter for open fracture type I or II
CPT/HCPCS: 73090; 96361; 96365; 96366; 96375; 96376; 99285; G0378; J2405